=== PATIENT | female | born 1975 | race Two or more races ===

== ENCOUNTER 2017-12-30 20:20 | Emergency (ER) | payer BC, OTHER ==
[2017-12-30 20:56] VITALS: BP 122/70; PULSE 69; TEMP 98.4; BMI 28.6
--- NOTE | 2017-12-30 20:57 | PDOC ---
History of Present Illness - History of Present Illness Initial Comments: 12/30/17 21:04 Azra is a 42 year old female with significant past medical history of nephrolithiasis, who presents to the emergency department today complaining of right flank pain and multiple episodes of vomiting since 8am this morning.The patient reports a sharp stabbing pain in the right flank that radiates to the right groin. She reports multiple episodes of nonbloody nonbilious vomiting. She notes that she had two kidney stones in the past and this pain feels very similar. Her past kidney stones passed themselves. Denies any urinary symptoms at this time. Denies fever, chills. PAST MEDICAL HISTORY: nephrolithiasis PAST SURGICAL HISTORY: no significant history FAMILY HISTORY: no pertinent history SOCIAL HISTORY: Pt lives with family and is employed. MEDICATIONS: reviewed ALLERGIES: As per nursing notes Review of systems General: No fevers or chills, no weakness, no weight loss HEENT: No change in vision. No sore throat, No ear pain Cardiovascular: No chest pain or shortness of breath Respiratory:No cough, or wheezing. Gastrointestinal: +vomiting. No nausea, diarrhea or constipation, No rectal bleeding Genitourinary: +right flank pain that radiates to the RLQ. No dysuria, hematuria, or frequency Musculoskeletal: No joint or muscle pain or swelling Neurologic: No headache, vertigo, dizziness or loss of consciousness Psychiatric: No depression Skin: No rashes or easy bruising Endocrine: No increased thirst or abnormal weight change Allergic: No skin or latex allergy All other systems reviewed and normal Physical Exam GENERAL: The patient is awake, alert, and fully oriented, in no acute distress. HEAD: Normal with no signs of trauma. EYES: Pupils equal, round and reactive to light, extraocular movements intact, sclera anicteric, conjunctiva clear. ABDOMINAL: +RLQ tenderness. No guarding no rebound BACK: +right CVA tenderness. Right flank tenderness EXTREMITIES: Normal range of motion, no edema. NEUROLOGICAL: Normal speech, normal gait. PSYCH: Normal mood, normal affect. SKIN: Warm, Dry, normal turgor, no rashes or lesions noted. <An Gibbs - Last Filed: 12/30/17 21:03> - General History Source: Patient Exam Limitations: No Limitations - History of Present Illness Initial Comments: 12/30/17 22:14 A portion of this note was documented by scribe services under my direction. I have reviewed the details of the note, within reason, and agree with the documentation. The case summary and management plan written by me. Assessment and plan: This is a 42-year-old female who comes in complaining of kidney stone. Patient has a history of renal colic in the past. Patient's kidney stone last time was on the left this time is on the right she has had 1 day of right flank pain radiating to his right lower quadrant associated with some nausea and vomiting.Patient denied any fevers or chills. The workup was initiated including CBC, comp, CAT scan of her abdomen and pelvis to differentiate location of stone and size. Patient given pain medication with improvement in her comfort level. 12/30/17 23:08 Reevaluation patient much improved pain has resolved. Assessment and plan: This is a 42-year-old female with right flank pain. Patient had a workup for renal colic Blood work including CBC and chemistries were negative for any acute pathology 12/30/17 23:45 CT scan shows no evidence of a ureteral stone but does show evidence of a recently passed ureteral stone. In addition to that there is a small 1 mm stone on the left kidney and a small 2 mm stone in the right kidney patient is comfortable at this time and discharged home accompanied by her . Patient given urology follow-up <Humberto Hatch I - Last Filed: 12/30/17 23:45> - General Chief Complaint: Pain Stated Complaint: KIDNEY STONE Time Seen by Provider: 12/30/17 20:54 Past History <An Gibbs - Last Filed: 12/30/17 21:03> - Past Medical History COPD: No Kidney Stones: Yes - Surgical History Cholecystectomy: Yes - Suicide/Smoking/Psychosocial Hx Smoking History: Never smoked Hx Alcohol Use: No Drug/Substance Use Hx: No Substance Use Type: None <Humberto Hatch I - Last Filed: 12/30/17 23:45> - Past Medical History Allergies/Adverse Reactions: Allergies Allergy/AdvReac Type Severity Reaction Status Date / Time Iodinated Contrast- Oral and Allergy Unknown Verified 12/30/17 20:49 IV Dye Home Medications: Ambulatory Orders Acetaminophen 1,000 mg PO ONCE 12/30/17 Esomeprazole Magnesium [Nexium 24Hr] 20 mg PO DAILY PRN 12/30/17 Ondansetron [Zofran Odt -] 4 mg SL TID PRN #21 od.tablet 12/30/17 Oxycodone HCl/Acetaminophen [Percocet 5-325 mg Tablet] 1 - 2 tab PO Q4H #20 tablet MDD 8 12/30/17 Tamsulosin HCl [Flomax] 0.4 mg PO DAILY #12 cap.er.24h 12/30/17 *Physical Exam - Vital Signs Last Vital Signs Temp Pulse Resp BP Pulse Ox 98.4 F 69 18 122/70 100 12/30/17 20:48 12/30/17 20:48 12/30/17 20:48 12/30/17 20:48 12/30/17 20:48 <An Gibbs - Last Filed: 12/30/17 21:03> - Vital Signs Last Vital Signs Temp Pulse Resp BP Pulse Ox 98.4 F 69 18 122/70 100 12/30/17 20:48 12/30/17 20:48 12/30/17 20:48 12/30/17 20:48 12/30/17 20:48 <Humberto Hatch I - Last Filed: 12/30/17 23:45> ED Treatment Course - LABORATORY CBC & Chemistry Diagram: 12/30/17 21:15 12/30/17 21:15 <Humberto Hatch I - Last Filed: 12/30/17 23:45> *DC/Admit/Observation/Transfer - Attestations Scribe Attestion: 12/30/17 21:04 Documentation prepared by STEVE Prajapati, acting as medical csr for Humberto Hatch MD. <An Gibbs - Last Filed: 12/30/17 21:03> - Discharge Dispostion Decision to Admit order: No <Humberto Hatch I - Last Filed: 12/30/17 23:45> Diagnosis at time of Disposition: Renal colic on right side - Discharge Dispostion Disposition: HOME Condition at time of disposition: Good - Prescriptions Prescriptions: Ondansetron [Zofran Odt -] 4 mg SL TID PRN #21 od.tablet PRN Reason: Nausea Oxycodone HCl/Acetaminophen [Percocet 5-325 mg Tablet] 1 - 2 tab PO Q4H #20 tablet MDD 8 Tamsulosin HCl [Flomax] 0.4 mg PO DAILY #12 cap.er.24h - Referrals Referrals: Monica Mckeon MD [Primary Care Provider] - Eduardo Bernal MD [Staff Physician] - - Patient Instructions Additional Instructions: For the pain he can take Tylenol or Motrin however she need something stronger send a prescription for Percocet G her pharmacy. You can take one tablet every 4 -6 hours as needed. Take Flomax 1 tablet a day this help keep the urine flowing If you develop nausea take Zofran 1 tablet as often as 3 times a day the Zofran is placed under the tongue and dissolved. If you need a urologist to follow up with call Dr. Bernal at . Stay well hydrated Return to the emergency department immediately with ANY new, persistent or worsening symptoms. Continue any medications as previously prescribed by your physician. You should follow up with your primary doctor as soon as possible regarding today's emergency department visit. . Please make sure your doctor reviews the results of your emergency evaluation. Thank you for coming to the Emergency Department today for your care. It was a pleasure to see you today. Please note that your evaluation is INCOMPLETE until you follow-up with your doctor. - Post Discharge Activity
[2017-12-30] MEDS ORDERED: morphine CARPU-JECT 2 MG/1 ML DISP.SYRIN IVPUSH ONE (20:58)
[2017-12-30] MEDS ORDERED: ONDANSETRON 4 MG/2 ML VIAL IVPB ONE (20:58)
[2017-12-30] MEDS ORDERED: KETOROLAC TROMETHAMINE 30 MG/1 ML VIAL IVPUSH ONE (20:58)
[2017-12-30] MEDS ORDERED: SODIUM CHLORIDE 1,000 ML IV ONE (20:58)
[2017-12-30] MEDS ORDERED: KETOROLAC TROMETHAMINE 30 MG/1 ML VIAL ONE (21:03)
[2017-12-30] MEDS ORDERED: morphine SULFATE 4 MG/ML VIAL ONE (21:04)
[2017-12-30] MEDS ORDERED: ONDANSETRON 4 MG/2 ML VIAL ONE ×2 (21:04→21:31)
[2017-12-30 21:45] LABS: BASO % 2.7 % (0-2.0); EOS % 0.1 % (0-4.5); HEMATOCRIT 42.8 % (32.4-45.2); HEMOGLOBIN 13.9 GM/dl (10.7-15.3); LYMPH % 11.4 % (8-40); MCH 27.7 pg (25.7-33.7); MCHC 32.5 g/dl (32.0-36.0); MEAN CELL VOLUME 85.2 fl (80-96); MEAN PLT VOLUME 8.4 fl (7.5-11.1); MONO % 6.6 % (3.8-10.2); NEUT % 79.2 % (42.8-82.8); PLATELET COUNT 321 K/MM3 (134-434); RBC 5.03 M/mm3 (3.60-5.2); RDW 12.7 % (11.6-15.6); WHITE BLOOD COUNT 10.4 K/mm3 (4.0-10.8)
[2017-12-30 21:56] LABS: ALBUMIN 4.5 g/dl (3.5-5.0); ALK PHOS 96 U/L (32-92); ANION GAP 9 MMOL/L (8-16); BILIRUBIN,TOTAL 0.7 mg/dl (0.2-1.0); BLOOD UREA NITROGEN 15 mg/dl (7-18); CALCIUM 9.7 mg/dl (8.4-10.2); CHLORIDE 101 mmol/L (98-107); CO2 25 mmol/L (22-28); CREATININE 0.7 mg/dl (0.6-1.3); GLUCOSE,RANDOM 128 mg/dl (74-106); POTASSIUM 4.3 mmol/L (3.5-5.1); SGOT/AST 20 U/L (10-42); SGPT/ALT 30 U/L (10-40); SODIUM 135 mmol/L (136-145); TOT PROT 7.4 g/dl (6.4-8.3)
[2017-12-30 22:06] LABS: PH,URINE 6.5 (4.5-8); URINE APPEARANCE Clear; URINE BILIRUBIN Negative (NEGATIVE); URINE COLOR Yellow; URINE GLUCOSE (UA) Negative (NEGATIVE); URINE KETONE 1+ (NEGATIVE); URINE NITRITE Negative (NEGATIVE); URINE PROTEIN Negative (NEGATIVE); URINE UROBILINOGEN 0.2 (0.2-1.0)
[2017-12-30 22:10] LABS: URINE LEUK ESTERASE TRACE (NEGATIVE)
[2017-12-30 22:44] LABS: EPI CELLS 0-3 /HPF
== END 2017-12-30 23:42 | disposition home or self-care (01) ==
LOC: FER 20:20
PROC: 3E0333Z Introduction of Anti-inflammatory into Peripheral Vein, Percutaneous Approach (ICD-10-PCS; principal; 2017-12-30)
PROC: 3E033NZ Introduction of Analgesics, Hypnotics, Sedatives into Peripheral Vein, Percutaneous Approach (ICD-10-PCS; 2017-12-30)
PROC: 3E033GC Introduction of Other Therapeutic Substance into Peripheral Vein, Percutaneous Approach (ICD-10-PCS; 2017-12-30)
PROC: 3E0337Z Introduction of Electrolytic and Water Balance Substance into Peripheral Vein, Percutaneous Approach (ICD-10-PCS; 2017-12-30)
DX: N23 Unspecified renal colic (principal)
CPT/HCPCS: 36415; 74176-TC; 80053; 81003; 81015; 84703; 85025; 99283-25; J7030